=== PATIENT | female | born 1955 | race Caucasian/White ===

== ENCOUNTER 2016-06-27 11:16 | Emergency (ER) | payer OTHER ==
[~2016-06-27 11:16] MED LIST: ACTOS15 MG PO; COUMADIN4 MG PO; COUMADIN5 MG PO; COZAAR100 MG PO; IPRAT-ALBUT 0.5-3 ML IH; METFORMIN HCL500 MG PO; NEURONTIN300 MG PO; NICODERM 14MG PA1 EA TD; PERCOCET 5-3251 EACH PO
[2016-06-27 12:07] LABS: BASO % 0.2 % (0.1-1.2); EOS # 0.4 10_X3_uL (0.0-0.4); EOS % 4.2 % (0.7-5.8); GRAN # 5.4 10_X3_uL (1.6-6.1); GRAN % 63.6 % (34.0-71.1); HEMATOCRIT 33.9 % (34-45); HEMOGLOBIN 11.1 g/dL (11.2-15.7); LYMPH # 1.9 10_X3_uL (1.2-3.7); LYMPH % 22.3 % (19.3-51.7); MEAN CORPUSCULAR HEMOGLOBIN 28.2 pg (27.0-33.0); MEAN CORPUSCULAR HGB CONC 32.7 g/dL (32.0-36.0); MEAN PLATELET VOLUME 8.8 fl (7.5-11.5); MONO # 0.8 10_X3_uL (0.2-0.9); MONO % 9.7 % (4.7-12.5); PLATELET COUNT 371 x10_3/uL (182-369); RED BLOOD COUNT 3.94 x10_6/uL (3.9-5.2); RED CELL DISTRIBUTION WIDTH 16.6 % (11.7-14.4); WHITE BLOOD COUNT 8.5 x10_3/uL (4.0-10.0)
[2016-06-27 12:21] LABS: BLOOD UREA NITROGEN 20 mg/dL (7-18); CALCIUM 8.5 mg/dL (8.7-10.7); CARBON DIOXIDE 20 mmol/L (21-32); CREATININE 0.8 mg/dL (0.6-1.3); GLUCOSE,RANDOM 215 mg/dL (70-99); POTASSIUM 5.2 mmol/L (3.5-5.1); SODIUM 136 mmol/L (136-145)
[2016-06-27 13:20] LABS: ERYTHROCYTE SEDIMENTATION RATE 68 mm/hr (0-20)
== END 2016-06-27 12:30 | disposition left against medical advice (07) ==
LOC: ER 11:16
PROVIDERS: Internal Medicine
DX: M79.671 Pain in right foot (principal); E11.9 Type 2 diabetes mellitus without complications; Z89.612 Acquired absence of left leg above knee; F17.210 Nicotine dependence, cigarettes, uncomplicated; Z88.2 Allergy status to sulfonamides; Z88.8 Allergy status to other drugs, medicaments and biological substances; Z79.4 Long term (current) use of insulin; Z79.899 Other long term (current) drug therapy
CPT/HCPCS: 36415; 80048; 85025; 85651; 99070; 99283